=== PATIENT | male | born 1975 | race Two or more races ===

== ENCOUNTER 2017-10-13 09:20 | Emergency (ER) | payer OTHER ==
[~2017-10-13] VITALS: Ht 170.2 cm; Wt 72.6 kg
--- NOTE | 2017-10-13 09:25 | NUR ---
[facility]ELIA FROM [facility] C/O G-TUBE REPLACEMENT. DR LOBATO AT BS FOR EVAL.
--- NOTE | 2017-10-13 09:40 | NUR ---
DR LOBATO CHANGED THE G-TUBE AND INSERTED 18G
[2017-10-13] MEDS ORDERED: DIATR MEGLU/DIATRIZOATE SODIUM 30 ML BOTTLE (GASTROGRAPHIN) ONE (09:45)
[2017-10-13] MEDS ORDERED: DIATR MEGLU/DIATRIZOATE SODIUM 30 ML BOTTLE (GASTROGRAPHIN) PO ONE (10:00)
--- NOTE | 2017-10-13 10:40 | NUR ---
TRANSPORT CALLED [phone] ETA IS 45 FROM NOW
--- NOTE | 2017-10-13 11:44 | NUR ---
Patient discharged to home in stable condition. Written and verbal after care instructions given. Patient verbalizes understanding of instruction.
[2017-10-13 11:46] VITALS: BP 148/96
== END 2017-10-13 11:46 | disposition home or self-care (01) ==
LOC: ER 09:21
DX: Z43.1 Encounter for attention to gastrostomy (principal); I10 Essential (primary) hypertension; K21.9 Gastro-esophageal reflux disease without esophagitis; J96.90 Respiratory failure, unspecified, unspecified whether with hypoxia or hypercapnia; Z87.01 Personal history of pneumonia (recurrent); Z98.890 Other specified postprocedural states
CPT/HCPCS: 74018; A4606; Q9963; Z7610